=== PATIENT | male | born 1980 | race Caucasian/White ===

== ENCOUNTER 2024-06-11 20:23 | Emergency (ER) | payer BC, SELFPAY ==
[2024-06-11 20:36] VITALS: BP 191/116
[2024-06-11] MEDS: ZOFRAN 4 MG PO (20:42)
[2024-06-11] MEDS: TYLENOL 1000 MG PO (22:42)
[2024-06-11] MEDS: COMPAZINE 5 MG IV (22:43)
[2024-06-11] MEDS: BENADRYL 25 MG IV (22:43)
[2024-06-11] MEDS: TORADOL 30 MG IV (22:43)
--- NOTE | 2024-06-11 22:44 | ED.GENMED ---
History of Present Illness
General
Chief Complaint: Back Pain
Source: patient and spouse
Exam Limitations: none
Time Seen by Provider: 06/11/24 22:25
History of Present Illness
History of Present Illness:
This is a 44 year old male that comes in with c/o headache and neck pain. States that last week he was at work and he hurt his neck and back. States that he was nauseated when this happened. States that he then vomited for 2 days. States that he had
a headache al week. Then the past 2 days he has been nauseated. States that he felt he has a migraine that started yesterday. States that sometimes his vision was double and this comes and goes. States that this started today. States that this may
last 10-15 min. States that he also went to the Chiropractor on Sunday and he was better over the weekend. States that he then started with vomiting today at 3am and has been vomiting all day. States that he has had chest tightness, nausea,
vomiting, and headache. States that the headaches is on the sided and goes around to the back. Denies any fever, chills, SOB, abd pain, diarrhea, urinary burning.
Past History
Past History
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 )
ED Past Surgical History: None
Social History
Tobacco: Smoker
Alcohol: Occasional
Personal:
Living: with family
Review of Systems
Review of Systems
All Other Systems: ROS reviewed and negative except as documented in HPI and ROS
Constitutional: Reports no symptoms; Denies fever or chills
EENT: Reports no symptoms
Respiratory: Denies cough or trouble breathing
Cardiac: Reports chest pain (Tightness)
ABD/GI: Reports nausea and vomiting; Denies abdominal pain or diarrhea
: Reports no symptoms; Denies dysuria, frequency or urgency
Musculoskeletal: Reports no symptoms
Skin: Reports no symptoms
Neurological: Reports headache; Denies dizzy
Psychiatric: Reports no symptoms
Phy Exam
General Physical Exam
General Presentation: no apparent distress
General age: appears stated age
General Skin: warm and dry
General Habitus: normal
General Mental: alert
General Hydration: dry mucous membranes
ENT Exam
ENT Exam: TM's normal, pharynx normal and neck supple
Eye Exam
Eye Exam: EOMI
Cardiovascular Exam
Cardiovascular Exam: regular rate/rhythm, no edema and normal peripheral pulses
Pulmonary Exam
Pulmonary Exam: lungs clear, no respiratory distress, no rales, chest non tender, no crackles, no rhonchi, no wheezing and no cough
Gastrointestinal Exam
Gastrointestinal Exam: normal bowel sounds, non tender, soft, no organomegaly, no pulsatile mass and non distended
Musculoskeletal Exam
Musculoskeletal Exam: full ROM and no edema
Skin Exam
Skin Exam: normal color, warm/dry, no rash and no petechia
Psychiatric Exam
Psychiatric Exam: normal mood/affect
Course
Orders/Labs/Results
Orders:
Orders
06/11/24 20:42
CT Cervical Spine W/o Iv Contr Urgent
Comment:
Reason For Exam: pain
CT Head W/o Iv Contrast Urgent
Comment:
Reason For Exam: pain
06/11/24 20:43
Ondansetron HCl [Zofran] 4 mg PO NOW STA
06/11/24 20:45
Ondansetron Orally Disint [Zofran Odt (Orally Disintegrating)] 4 mg .ROUTE .[facility]
06/11/24 22:36
0.9% Sodium Chloride 1000 ml [Nss] 1,000 ml IV BOLUS
Acetaminophen [Tylenol] 1,000 mg PO NOW STA
Diphenhydramine [Benadryl] 25 mg IV NOW STA
Ketorolac [Toradol] 30 mg IV NOW STA
Prochlorperazine [Compazine] 5 mg IV NOW STA
06/11/24 22:50
CRP [C-Reactive Protein] Urgent
Complete Blood Count/With Diff Urgent
Comprehensive Metabolic Panel Urgent
Sed Rate [Erythrocyte Sed Rate] Urgent
06/11/24 23:00
Electrocardiogram (*1) Urgent
Reason for Study: Chest Pain
EKG- Treatment ONCE
06/11/24 23:17
Troponin I Urgent
06/12/24 00:22
HydrALAZINE [Apresoline] 5 mg IV NOW STA
Abnormal Lab Results
06/11/24
22:50
RBC 4.57 L 10^6/uL
(4.70-6.10)
MCH 32.2 H pg
(27.0-31.0)
MCHC 37.4 H g/dL
(33.0-37.0)
Absolute Neuts (auto) 7.3 H 10^3/uL
(1.4-6.5)
Neutrophils % 81.6 H %
(42.2-75.2)
Lymphocytes % 14.4 L %
(20.5-51.1)
Chloride 94 L mmol/L
(98-107)
Creatinine 0.5 L mg/dL
(0.7-1.3)
Glucose 286 H mg/dl
(70-99)
Calcium 10.4 H mg/dl
(8.4-10.2)
06/11/24 22:50
06/11/24 22:50
Chloride low, Hyperglycemia. Calcium slightly elevated. Sed rate normal at 9, CRP <5.0 normal.
Vital Signs
Initial and Last Documented VS:
Initial Vital Signs
Temp Pulse Resp BP Pulse Ox
98.3 F 93 16 191/116 99
06/11/24 20:36 06/11/24 20:36 06/11/24 20:36 06/11/24 20:36 06/11/24 20:36
Last Documented Vital Signs
Temp Pulse Resp BP Pulse Ox
98.5 F 68 16 153/102 97
06/11/24 23:19 06/12/24 00:33 06/11/24 20:36 06/12/24 00:33 06/11/24 23:19
MDM/Problems Addressed
Differential Diagnosis Includes:
complicated Migraine,
MDM/Problems Addressed:
This is a 44 year old male that comes in with c/o headache. States that this started a week ago and he has had nausea and vomiting with the headache. States that his vision has also been off and it comes and goes. States that sometimes he is seeing
double.
Will get labs, CT head and neck and given Medication for pain.
Back into see patient. States that he is feeling better. Patient BP remains elevated. will medicate before discharge. states that he was on Medication but has not been taking this as his BP was normal when in the doctors office last time.
Patient has an appointment with the PCP at 7:45 am.
Chronic conditions affecting care: DM
Acute Exacerbation and/or Progression of Chronic Illness:
NA
*Radiology
Radiology exam reviewed: radiology read reviewed (CT head-NO acute intracranial abnormality noted CT cervical spine-Mild degenerative changes. )
*Pulse Oximetry
Patient hypoxic: no
*EKG
Interpreted by ED Provider?: Yes
Heart Rate: 93
Rate: normal
Rhythm: sinus
[place]: left axis deviation
Interval: normal interval
QRS Pattern: normal QRS
Ischemia: no ischemia
*Control Systems Specialist Interpretation
Rate: Control Systems Specialist- N/A
*Critical Care Note
Total Time (30-74mins, 75-104mins- exclusive of procedures): Not Applicable
ED Attending Note
-
Portions of this chart may have been created with voice recognition software.� Occasional wrong word or��sound alike� substitutions may have occurred due to the inherent limitations of voice recognition software.
Discharge Plan
Departure
Patient Disposition: Home (Routine Discharge)
Date of Disposition: 06/12/24
Time of Disposition: 00:59
Patient with high blood pressure during this ER visit?: Yes
Condition: Good
Covid-19: Not Applicable
Discharge Problem:
Headache
Instructions: Headache, Adult ED, BLOOD PRESSURE
Referrals:
Justina Fine CRNP [Family Provider] - 06/12/24 7:45 am
Activity Restrictions/Additional Instructions:
As discussed, your CT of the head and neck are negative for any acute process. There is degenerative changes on the neck. Your ECG and blood work are normal. This may be a complicated Migraine. You have been given Medication to help lower your
blood pressure. Please follow up in the morning with the family doctor as scheduled. Tylenol 1000mg every 6 hours for headache pain. You may need to see a Neurologist for further evaluation. IF YOU HAVE INCREASED OR CHANGING HEADACHE PAIN,
DIZZINESS, OR ANY OTHER CONCERNS PLEASE RETURN TO THE EMERGENCY ROOM
Interventions
Interventions:
*Risk Screen - Suicide Last Done: 06/11/24 23:37
*General Assessment Last Done: 06/11/24 23:20
*Neglect/Abuse Screening Last Done: 06/11/24 23:37
ED- Fall Risk Assessment Last Done: 06/11/24 23:01
ED-Musculoskeletal Assessment Last Done: 06/11/24 23:02
Discharge Date and Time
Print Language: GREEK
[2024-06-11] MEDS: NSS 1000 IV (22:45)
[2024-06-11 23:01] LABS: % Basophils 0.6 % (0-2); % Immature Granulocytes 0.3 % (0-0.5); % Lymphocytes 14.4 % (20.5-51.1); % Monocytes 3.1 % (1.7-9.3); % Neutrophils 81.6 % (42.2-75.2); Absolute Basophils 0.1 10^3/uL (0-0.2); Absolute Lymphocytes 1.3 10^3/uL (1.2-3.4); Absolute Monocytes 0.3 10^3/uL (0.1-0.6); Absolute Neutrophils 7.3 10^3/uL (1.4-6.5); Hematocrit 39.3 % (39.0-52.0); Hemoglobin 14.7 g/dL (13.0-18.0); Mean Corp Hgb Conc. 37.4 g/dL (33.0-37.0); Mean Corpuscular Hgb 32.2 pg (27.0-31.0); Mean Platelet Volume 8.5 fL (7.4-10.4); Nucleated Red Blood Cells % 0 % (-); Platelet Count 397 10^3/uL (130-400); Red Blood Cell Count 4.57 10^6/uL (4.70-6.10); Red Cell Dist. Width 11.7 % (11.5-14.5)
[2024-06-11 23:07] LABS: Erythrocyte Sed Rate 9 mm/hour (0-20)
[2024-06-11 23:17] LABS: ALT (SGPT) 19 U/L (0-50); AST (SGOT) 17 U/L (17-59); Alkaline Phosphatase 63 U/L (38-126); Blood Urea Nitrogen 16 mg/dl (9-20); Calcium 10.4 mg/dl (8.4-10.2); Carbon Dioxide 27 mmol/L (22-30); Glucose 286 mg/dl (70-99); Total Bilirubin 0.8 mg/dl (0.2-1.3); Total Protein 7.4 g/dl (6.3-8.2); eGFR > 60.00
[2024-06-11 23:18] LABS: C-Reactive Protein < 5.00 mg/L (0.0-10.00)
[2024-06-11 23:19] VITALS: BP 156/104
[2024-06-11 23:39] LABS: Chloride 94 mmol/L (98-107); Potassium 4.2 mmol/L (3.5-5.1); Sodium 136 mmol/L (135-145)
[2024-06-11 23:51] LABS: Troponin I < 0.012 ng/ml
[2024-06-12] MEDS: APRESOLINE 5 MG IV (00:33)
[2024-06-12] MEDS: ZESTRIL 5 MG PO (01:12)
== END 2024-06-12 01:25 | disposition home or self-care (01) ==
LOC: EMR 20:23
PROVIDERS: Clinical Nurse Specialist Family Health; EMERGENCY PHYSICIAN Emergency Medicine; FAMILY PHYSICIAN Nurse Practitioner Family
DX: M54.9 Dorsalgia, unspecified (principal); R51.9 Headache, unspecified; I10 Essential (primary) hypertension; E11.65 Type 2 diabetes mellitus with hyperglycemia; F17.200 Nicotine dependence, unspecified, uncomplicated
CPT/HCPCS: 99284; 96374; 96375; 70450; 72125; 80053; 84484; 85025; 85652; 86140; 93005